=== PATIENT | male | born 1970 | race Caucasian/White ===

== ENCOUNTER → 2019-05-12 | Outpatient (CLI) | payer OTHER ==
--- NOTE | 2019-05-12 14:38 | CARD ---
MR#: [id number] Date of Study: 05/12/2019 Ordering Physician: TEGAN TINOCO, Referring Physician: Yuliana ALCOCER: Natasha Dozier RDCS APPROVED REPORT INDICATION Abnormal ECG Reason : Abnormal EKG PROCEDURE The patient underwent an Exercise Stress Test using the Chintan Protocol. Blood pressure, heart rate, a nd EKG were monitored. An Echocardiogram was performed by electrician technician in four stages in quad fashion. At peak stress four se lected images were obtained and placed side by side with resting images for comparison. STRESS ECHO FINDINGS The resting Echocardiogram showed normal left ventricular systolic contractility with an estimated Ej ection Fraction of about 60 %. The Resting Echocardiogram showed normal augmentation of myocardial wall segments using a 16 segment model. The Stress Echocardiogram showed normal augmentation of myocardial wall segments using a 16 segment m susi. The Stress Echocardiogram left ventricular systolic contractility has an estimated Ejection Fraction of about 75%. Test Type: Exercise Stress Nurse/Tech: Ming Rojas RN Test Indications: SOA, abnormal EKG Cardiac History and Allergies: No known cardiac Medications: See EMR Medical History: Se EMR Resting ECG: SR Resting Heart Rate: 62 bpm Resting Blood Pressure: 134/58mmHg Pretest Chest Pain: None Nurse/Tech Notes lungs CTA Consent: The procedure was explained to the patient in lay terms. Informed consent was witnessed. Robert eout was entered into [employer]. History and Stress Test performed by Ming Rojas RN Stress Symptoms No chest pain or symptoms. POST EXERCISE Reason for Termination: Reached target heart rate Target HR: 147 Max HR: 173 bpm Exercise duration: 14.02 min:sec, 5 Stage Max Blood Pressure: 159/59mmHg Blood Pressure response to exercise: Normal blood pressure response during stress. Heart Rate response to exercise: normal response Chest Pain: No. Arrhythmia: No. ST Change: No. INTERPRETATION Stress EKG Conclusion: Baseline EKG showed sinus rhythm. No ischemic changes at peak stress. No arr hythmias. Preliminary Notification Critical Value: No <Conclusion> Treadmill exercise stress echocardiogram did not show any evidence of ischemia or infarct. Normal left ventricle systolic function with ejection fraction estimated at 60%. Patient had good activity tolerance. Low risk for cardiac events. Signed by : Tegan Tinoco, Electronically Approved : 05/12/2019 14:37:38
== END | disposition home or self-care (01) ==
LOC: ECHO 12:25
PROVIDERS: ATTEND Internal Medicine Cardiovascular Disease
DX: R94.31 Abnormal electrocardiogram [ECG] [EKG] (principal)
CPT/HCPCS: 93017; 93350